=== PATIENT | male | born 1960 | race Caucasian/White ===

== ENCOUNTER 2022-12-03 10:26 | Outpatient (CLI) | payer BC, SELFPAY | END 2022-12-03 10:27 | disposition home or self-care (01) | LOC: NFLDREF 12-04 00:47 | PROVIDERS: PCP Family Medicine; Referring Provider Family Medicine; Visit Provider Family Medicine | DX: Z00.00 Encounter for general adult medical examination without abnormal findings (principal); E78.00 Pure hypercholesterolemia, unspecified; I10 Essential (primary) hypertension; R97.20 Elevated prostate specific antigen [PSA]; Z12.5 Encounter for screening for malignant neoplasm of prostate | CPT/HCPCS: 80048; 80061; 84153 ==

== ENCOUNTER 2023-05-02 11:26 | Outpatient (CLI) | payer BC, SELFPAY | END 2023-05-02 11:27 | disposition home or self-care (01) | LOC: NFLDREF 05-03 12:38 | PROVIDERS: PCP Family Medicine; Referring Provider Family Medicine; Visit Provider Family Medicine | DX: E78.00 Pure hypercholesterolemia, unspecified (principal) | CPT/HCPCS: 80061; 80076 ==

== ENCOUNTER 2024-03-10 13:28 | Outpatient (CLI) | payer BC, SELFPAY | END 2024-03-10 13:29 | disposition home or self-care (01) | LOC: NFLDREF 03-13 02:29 | PROVIDERS: PCP Family Medicine; Referring Provider Family Medicine; Visit Provider Family Medicine | DX: Z00.00 Encounter for general adult medical examination without abnormal findings (principal); R73.9 Hyperglycemia, unspecified; R97.20 Elevated prostate specific antigen [PSA]; I10 Essential (primary) hypertension; E78.00 Pure hypercholesterolemia, unspecified; N52.9 Male erectile dysfunction, unspecified; I25.10 Atherosclerotic heart disease of native coronary artery without angina pectoris; Z13.1 Encounter for screening for diabetes mellitus; Z12.5 Encounter for screening for malignant neoplasm of prostate | CPT/HCPCS: 83036; G0103 ==

== ENCOUNTER 2024-11-10 10:37 | Outpatient (CLI) | payer BC, SELFPAY | END 2024-11-10 10:38 | disposition home or self-care (01) | LOC: LKVREF 10:38 | PROVIDERS: PCP Family Medicine; Visit Provider Family Medicine | DX: E78.00 Pure hypercholesterolemia, unspecified (principal); I10 Essential (primary) hypertension; I25.10 Atherosclerotic heart disease of native coronary artery without angina pectoris | CPT/HCPCS: 80053; 80061 ==

== ENCOUNTER 2024-12-10 13:34 | Outpatient (CLI) | payer BC, SELFPAY ==
--- NOTE | 2024-12-10 14:23 | W.PM.STED ---
Stress Test Note Date Date Seen: 12/10/24 Date of test: 12/10/24 Providers Primary care provider: Kvng Ivy Stress test physician: Elif Pace Stress Test Note Stress test ordered: Stress Echo Indication for test: Dyspnea on exertion Stress test medicine: None Results discussion: Resting EKG: Sinus rhythm, 60 beats per minute. Flipped T-waves without ST segment changes in V1, 3 and AVF. Resting blood pressure: 132/85 Stress test: Patient is consented on ordered exercise stress echo. Standard Memo protocol is followed on the treadmill. Patient exercised to 8 minutes 1 second, stopping doing to meeting heart rate goal and becoming significantly short of breath. His exercise level was consistent with 9.7 Mets. He had a maximum heart rate of 137 beats per minute which was 103% of a calculated target heart rate of 133. He had a maximal blood pressure 180/100. Rate pressure product was 24,660. There was no diagnostic ischemic change. Occasional PVC was noted in recovery but no arrhythmia. Patient had no chest pain. He recovered nicely. Await echo images to couple this for a full formal diagnostic. Impression: Subjectively short of breath but no chest pain, objectively negative EKG portion of this stress echo. Follow up suggested: Patient was discharged in stable condition, will await follow-up report from his primary once the echo images are back.
[2024-12-10 14:33] VITALS: BP 129/67; PULSE 89
== END 2024-12-10 13:35 | disposition home or self-care (01) ==
PROVIDERS: PCP Family Medicine; Visit Provider Family Medicine
DX: I25.10 Atherosclerotic heart disease of native coronary artery without angina pectoris (principal); R06.09 Other forms of dyspnea; R07.9 Chest pain, unspecified
CPT/HCPCS: 93016; 93325; 93351

== ENCOUNTER 2025-07-29 11:17 | Outpatient (CLI) | payer BC, SELFPAY | END 2025-07-29 11:18 | disposition home or self-care (01) | LOC: LKVREF 11:19 | PROVIDERS: PCP Family Medicine; Visit Provider Family Medicine | DX: R97.20 Elevated prostate specific antigen [PSA] (principal); E78.00 Pure hypercholesterolemia, unspecified | CPT/HCPCS: 80053; 80061; 84153 ==